=== PATIENT | female | born 1970 | race Caucasian/White ===

== ENCOUNTER 2023-04-03 10:37 | Emergency (ER) | payer OTHER, SELFPAY ==
[2023-04-03 10:45] VITALS: BP 105/57; PULSE 77; RESP 20; TEMP 36.9; O2SAT 100
--- NOTE | 2023-04-03 10:46 | ED.DENTAL ---
HPI - Dental/Oral General Chief complaint: Dental/Oral Stated complaint: tooth/mouth pain Source: patient and RN notes reviewed History of Present Illness HPI Narrative: 52 yo F presents to urgent care with complaints of right upper dental and gum pain. Pt states she has had a broken tooth in this area but she thinks it got worse when she was chewing on ice a couple days ago. Pt denies any fevers, chills, chest pain, SOB, vomiting, or trouble swallowing or breathing. Pt has been taking ibuprofen and Tylenol at home. Pt has a dentist appt in 2 weeks. Related Data Allergies Allergy/AdvReac Type Severity Reaction Status Date / Time latex Allergy Unknown RASH Verified 04/03/23 10:46 Penicillins Allergy Unknown THROAT Verified 04/03/23 10:46 SWELLING acetaminophen [From Vicodin] Allergy Hives Verified 04/03/23 10:54 hydrocodone [From Vicodin] Allergy Hives Verified 04/03/23 10:54 Review of Systems Review of Systems: CONSTITUTIONAL: Denies fever, chills, or sweats. EYES: Denies visual changes, redness, or discharge. ENT: Denies otalgia and sore throat CARDIOVASCULAR: Denies chest pain, palpitations, or edema. RESPIRATORY: Denies cough or dyspnea. GASTROINTESTINAL: Denies abdominal pain, nausea, vomiting, or diarrhea. GENITOURINARY: Denies dysuria or hematuria. SKIN: Denies rash or itching. MUSCULOSKELETAL: Denies back pain, joint pain, or myalgia. NEUROLOGIC: Denies headache, numbness, or weakness. Pertinent positives per HPI. PMFSH Comments At the time of my signature, I reviewed and agree with the nursing past medical, surgical, social, and family history. There is no relevant family history pertinent to the patient complaint. Exam Narrative: GENERAL: This is a well-nourished, well-developed patient, in no apparent distress. HEAD: normocephalic, atraumatic. EYES: Sclera clear/white. Vision is grossly intact. EARS: External ears normal, auditory canals clear and without drainage, TMs normal without perforation. Hearing grossly intact. NOSE: External nose normal with no obvious nasal discharge, nares without redness, no rhinorrhea. MOUTH: tooth #2 cracked and broken. no obvious swelling or exudate. THROAT: Mucous membranes moist, posterior pharynx clear. NECK: Neck supple, non-tender without lymphadenopathy, masses or thyromegaly. CARDIOVASCULAR: Regular rate RESPIRATORY: No respiratory distress SKIN: warm, intact with no suspicious lesions or rash, good texture and turgor. NEURO: awake, alert, and oriented to person, place and time. There were no obvious focal neurologic abnormalities. Course Course Level of Care: Express Care Visit Vital Signs Vital signs: Vital Signs Temperature 98.5 F 04/03/23 10:45 Pulse Rate 77 04/03/23 10:45 Respiratory Rate 20 04/03/23 10:45 Blood Pressure 105/57 L 04/03/23 10:45 Pulse Oximetry 100 04/03/23 10:45 Temperature 98.5 F 04/03/23 10:45 Pulse Rate 77 04/03/23 10:45 Respiratory Rate 20 04/03/23 10:45 Blood Pressure 105/57 L 04/03/23 10:45 Pulse Oximetry 100 04/03/23 10:45 Reviewed MDM - Dental/Oral MDM Narrative Medical decision making narrative: Take antibiotic until it's gone. Brushing teeth at least twice daily with gentle flossing. Avoid temperature extremes when you eat. Salt gargle to rinse your mouth after every meal You may apply ice to the face to reduce pain/swelling. For pain, you may take: Tylenol 650-1000mg by mouth every 4-6 hours. Do not exceed 4000mg in 24 hours. Advil (Ibuprofen) 600 mg by mouth every 6 hours. Do not exceed 2400mg in 24 hours. Also, recommend regular dental check up one-two times a year to prevent tooth decay and other periodontal disease. Follow-up with the dentist as soon as possible. See the list provided Differential Diagnosis Differential diagnosis: Likely dental caries, toothache and dental abscess Critical Care Time Critical Care Time Critical Care Time: No
--- NOTE | 2023-04-03 11:50 | PC.NURSE ---
1045 PT STATES CUT HER WRIST OVER A YEAR AGO, DENIES ADDITIONAL ATTEMPTS/CONSIDERATIONS SINCE. [facility] HAS HAD A VERY GOOD COUNSELOR IN PAST/CURRENTLY SCHEDULED VISIT. [employer]IST AWARE.
== END 2023-04-03 11:05 | disposition home or self-care (01) ==
PROVIDERS: Emergency Provider Nurse Practitioner Family
DX: K04.7 Periapical abscess without sinus (principal)
CPT/HCPCS: 99203; G0463

== ENCOUNTER 2023-05-02 09:08 | Emergency (ER) | payer OTHER, SELFPAY ==
--- NOTE | ~2023-05-02 | XR_ITS ---
EXAMINATION: XR pelvis 1-2V INDICATION: Right pelvic pain TECHNIQUE: AP view of the pelvis is obtained. COMPARISON: None available FINDINGS: Bone alignment is normal. There is no fracture. The soft tissues are unremarkable. There ar e phleboliths of the pelvis. IMPRESSION: 1. No acute osseous abnormality. Reviewed, dictated and finalized at location A.
[2023-05-02 09:14] VITALS: BP 109/65; PULSE 75; RESP 18; TEMP 36.5; O2SAT 100
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
== END 2023-05-02 10:25 | disposition home or self-care (01) ==
PROVIDERS: Emergency Provider Nurse Practitioner Family
DX: B37.31 Acute candidiasis of vulva and vagina (principal); A59.9 Trichomoniasis, unspecified; N39.0 Urinary tract infection, site not specified; B96.20 Unspecified Escherichia coli [E. coli] as the cause of diseases classified elsewhere; S73.101A Unspecified sprain of right hip, initial encounter; V48.6XXA Car passenger injured in noncollision transport accident in traffic accident, initial encounter; J45.909 Unspecified asthma, uncomplicated; Z98.84 Bariatric surgery status
CPT/HCPCS: 72170; 81003; 87077; 87086; 87186; 87491; 87591; 87661; 99214; G0463